=== PATIENT | female | born 1965 | race African-American/Black ===

== ENCOUNTER 2017-07-22 11:44 | Emergency (ER) | payer OTHER ==
[~2017-07-22] VITALS: Ht 160 cm; Wt 56.7 kg
--- NOTE | 2017-07-22 13:01 | ED AMS/SEIZURE/WEAK/DIZZY ---
History of Present Illness General Chief Complaint: Dizziness Stated Complaint: DIZZINESS Source: patient Exam Limitations: no limitations Vital Signs & Intake/Output Vital Signs & Intake/Output Vital Signs Date Time Temp Pulse Resp B/P B/P Pulse O2 O2 Flow FiO2 Mean Ox Delivery Rate 07/22 1514 97.3 75 18 142/84 97 Room Air 07/22 1335 97.8 70 18 155/89 100 Room Air 07/22 1201 97.6 70 20 160/95 100 Room Air 07/22 1150 100 Allergies Coded Allergies: No Known Allergies (07/22/17) Triage Note: PT BIBA FROM GYM. PT WAS DOING CARDIO AND BEGAN TO DO CRUNCHES AND THEN PT STATES SHE GOT DIZZY AND ALMOST PASSED OUT. PT STATES THE ROOM WAS SPINNING AROUND. 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 BS 111 ON EMS ARRIVAL BP 179/110 FOR THE NOW 169/109. PT CURRENTLY ON SEASONAL ALLERGY MEDS. Triage Nurses Notes Reviewed? yes Onset: Abrupt Duration: changing over time, intermittent Timing: multiple episodes today Modifying Factors: Worsens With: movement. LMP (ages 10-50): hysterectomy HPI: 52-year-old female presents to the emergency room reporting at about 10:00 this morning she was at the gym finishing a workout she had laid back and she had felt the room spinning. She states that it took her a little while to get out of that position and made her way towards the locker room at which point she vomited. She was taken by ambulance to the emergency department. She declines any history of this in the past. She also declines any significant medical history other than hysterectomy. No medication she takes regularly and no allergies. She states whenever she turns her head or moves she gets these symptoms again of dizziness. She reports nausea. She denies any chest pain, shortness of breath, abdominal pain or any other symptoms. (Arielle Cardoso) Reconcile Medications Meclizine HCl 12.5 MG TABLET 1 TAB PO TID dizziness Ondansetron (Zofran Odt) 4 MG TAB.RAPDIS 1 TAB SL TID nausea Scopolamine 1 MG/3 DAY PATCH.TD.3 1 PATCH TD EVERY 3 DAYS PRN nausea/dizziness (Awa DRAKE,Yonathan) Past History Travel History Traveled to [place] past 21 day No Medical History Any Pertinent Medical History? see below for history Neurological: NONE EENT: NONE Cardiovascular: NONE Respiratory: NONE Gastrointestinal: NONE Hepatic: NONE Renal: NONE Musculoskeletal: NONE Psychiatric: NONE Surgical History Surgical History: hysterectomy Psychosocial History Where do you live Home What is your primary language Luxembourgish Tobacco Use: Never used ETOH Use: occasional use Illicit Drug Use: denies illicit drug use Family History Hx Contributory? No (Arielle Cardoso) Review of Systems Review of Systems Constitutional: Reports: see HPI. EENTM: Reports: see HPI. Respiratory: Reports: no symptoms. Cardiovascular: Reports: no symptoms. GI: Reports: see HPI. Genitourinary: Reports: no symptoms. Musculoskeletal: Reports: no symptoms. Skin: Reports: no symptoms. Neurological/Psychological: Reports: no symptoms. Hematologic/Endocrine: Reports: no symptoms. Immunologic/Allergic: Reports: no symptoms. All Other Systems: Reviewed and Negative (Arielle Cardoso) Physical Exam Physical Exam General Appearance: well developed/nourished, no apparent distress, alert, awake , comfortable Head: atraumatic, normal appearance Eyes: Bilateral: normal appearance, PERRL, EOMI, other (horizontal nystagmus). 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 No CVA/TIA Diagnosis No Sepsis Present: No Sepsis Focused Exam Completed? No (Arielle Cardoso) Progress Differential Diagnosis: benign positional vertigo, dehydration, hypoglycemia Plan of Care: Orders Procedure Date/time Status EKG 07/22 1145 Active Diagnostic Imaging: Viewed by Me: CT Scan. Discussed w/RAD: CT Scan. Radiology Impression: PATIENT: BIENVENIDO DASH PRESENT AGE: 52 PATIENT ACCOUNT NO: [id number] : 65 LOCATION: [facility] ORDERING PHYSICIAN: Arielle GRANDE SERVICE DATE: 07/22/17-7 EXAM TYPE: CAT - CT HEAD WO IV CONTRAST EXAMINATION: CT HEAD WITHOUT CONTRAST CLINICAL INFORMATION: Dizziness COMPARISON: None TECHNIQUE: Contiguous axial imaging was performed from the skull base to vertex without intravenous administration of contrast. DLP: 592 mGy-cm FINDINGS: There is no evidence of acute intracranial hemorrhage or territorial infarction. No abnormal mass effect or midline shift is seen. Sawant to white matter differentiation is well preserved. No extra-axial fluid collections are identified. The ventricles are normal in size. There is punctate basal ganglia calcification. The osseous structures and soft tissues are normal. The mastoid air cells and visualized portions of the paranasal sinuses are well aerated. IMPRESSION: No acute intracranial pathology. DICTATED BY: Rivka Shearer MD DATE/TIME DICTATED:07/22/171344 SUPPLY CLERK:JENNY DATE/ TIME TRANSCRIBED:07/22/171344 CONFIDENTIAL, DO NOT COPY WITHOUT APPROPRIATE AUTHORIZATION. <Electronically signed in Other Vendor System> SIGNED BY: Rivka Shearer MD 07/22/17 4860 Initial ED EKG: none (Arielle Cardoso) Departure Departure Disposition: HOME OR SELF CARE Condition: Stable Clinical Impression Primary Impression: BPPV (benign paroxysmal positional vertigo) Qualifiers: Laterality: bilateral Qualified Code: H81.13 - Benign paroxysmal vertigo, bilateral Referrals: Patient Has No Primary Care Dr (PCP/Family) Additional Instructions: Use the scopolamine transdermal patch every 3 days as needed for nausea/ dizziness. Take Zofran as needed for nausea. Take meclizine as needed for dizziness. Return to the emergency department with any changes or worsening symptoms. Follow-up with ENT and PCP in this next week. Departure Forms: Customer Survey General Discharge Information Prescriptions: Current Visit Scripts Ondansetron (Zofran Odt) 1 TAB SL TID #10 TAB Meclizine HCl 1 TAB PO TID #30 TAB Scopolamine 1 PATCH TD EVERY 3 DAYS PRN nausea/dizziness #4 PATCH Comments 52-year-old female presented to the emergency department after having dizziness this morning at the gym as she was laying on her back. She reported feeling the room spinning. Head CT imaging was unremarkable. Patient felt better after scopolamine patch, Zofran, and meclizine. She was offered Konstantin maneuver for presumed BPPV diagnosis however declined. She would prefer to follow-up outpatient with ENT to perform this. She is encouraged to return to the emergency department with any changes in symptoms or worsening symptoms. She was stable upon discharge. (Facundo GRANDE,Arielle) PA/[facility] Co-Sign Statement Statement: ED Attending supervision documentation- I saw and evaluated the patient. I have also reviewed all the pertinent lab results and diagnostic results. I agree with the findings and the plan of care as documented in the PA's/[facility]'s documentation. x I have reviewed the ED Record and agree with the PA's/[facility]'s documentation. [] Additions or exceptions (if any) to the PAs/[facility]'s note and plan are summarized below: [] (Awa DRAKE,Yonathan)
--- NOTE | 2017-07-22 13:56 | CT SCAN REPORT ---
EXAMINATION: CT HEAD WITHOUT CONTRAST CLINICAL INFORMATION: Dizziness COMPARISON: None TECHNIQUE: Contiguous axial imaging was performed from the skull base to vertex without intravenous administration of contrast. DLP: 592 mGy-cm FINDINGS: There is no evidence of acute intracranial hemorrhage or territorial infarction. No abnormal mass effect or midline shift is seen. Sawant to white matter differentiation is well preserved. No extra-axial fluid collections are identified. The ventricles are normal in size. There is punctate basal ganglia calcification. The osseous structures and soft tissues are normal. The mastoid air cells and visualized portions of the paranasal sinuses are well aerated. IMPRESSION: No acute intracranial pathology.
[2017-07-22] MEDS ORDERED: MECLIZINE HCL12.5 M1 PO (15:06)
[2017-07-22] MEDS ORDERED: SCOPOLAMINE1 EAC1 TD (15:06)
[2017-07-22] MEDS ORDERED: ZOFRAN ODT4 M1 SL (15:06)
[2017-07-22 15:14] VITALS: BP 142/84
== END 2017-07-22 15:16 ==
LOC: ERH 11:44
DX: H81.10 Benign paroxysmal vertigo, unspecified ear (principal); R42 Dizziness and giddiness
CPT/HCPCS: 93005; 93010; J3101